=== PATIENT | female | born 1990 | race Caucasian/White ===

== ENCOUNTER 2017-10-08 22:30 | Emergency (ER) | payer OTHER ==
[~2017-10-08] VITALS: Ht 165.1 cm; Wt 59.4 kg
[2017-10-08 22:32] VITALS: BP 142/99
[2017-10-08] MEDS ORDERED: LIDOCAINE 1%-EPI 1:100,000 20 ML VIAL ONE (22:51)
[2017-10-08] MEDS ORDERED: ACETAMINOPHEN ES 500 MG TABLET ONE (23:03)
[2017-10-08] MEDS: ACETAMINOPHEN ES 500 MG TABLET PO ONE (23:06)
[2017-10-08] MEDS: LIDOCAINE 1%-EPI 1:100,000 20 ML VIAL TP ONE (23:27)
== END 2017-10-09 00:15 | disposition home or self-care (01) ==
LOC: ER 22:34
DX: S01.111A Laceration without foreign body of right eyelid and periocular area, initial encounter (principal); W18.09XA Striking against other object with subsequent fall, initial encounter; Y93.01 Activity, walking, marching and hiking; Y92.89 Other specified places as the place of occurrence of the external cause; Y99.8 Other external cause status
CPT/HCPCS: A4606; A6403; J3490; Z7610

== ENCOUNTER 2017-11-02 22:01 | Emergency (ER) | payer OTHER ==
--- NOTE | 2017-11-02 22:11 | NUR ---
CALLED PT IN [place], NO RESPONSE
--- NOTE | 2017-11-02 22:26 | NUR ---
CALLED PT IN [place], NO RESPONSE
== END 2017-11-02 22:27 | disposition left against medical advice (07) ==
LOC: ER 22:03
DX: Z53.21 Procedure and treatment not carried out due to patient leaving prior to being seen by health care provider (principal); R53.1 Weakness

== ENCOUNTER 2017-11-24 22:46 | Emergency (ER) | payer OTHER ==
[~2017-11-24] VITALS: Ht 165.1 cm; Wt 63.5 kg
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
[2017-11-24] MEDS ORDERED: ACETAMINOPHEN 325 MG TABLET PO ONE (23:30)
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
[2017-11-24] MEDS ORDERED: ACETAMINOPHEN ES 500 MG TABLET ONE (23:34)
--- NOTE | 2017-11-24 23:40 | NUR ---
PT AMBULATORY W/ STEADY GAIT TO RESTROOM. URINE OBTAINED & SENT.
--- NOTE | 2017-11-25 00:23 | NUR ---
PT SENT TO CT.
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
[2017-11-25 02:20] VITALS: BP 133/69
--- NOTE | 2017-11-25 02:33 | NUR ---
pt medically cleared by ROJELIO Fox of hard c-collar precautions. ROJELIO Fox at bedside for update on pt status.
--- NOTE | 2017-11-25 02:44 | NUR ---
Patient ambulatory w/ steady gait, resp even & unlabored, nad noted. Patient discharged to home in stable condition. Written and verbal after care instructions given. Patient verbalizes understanding of instruction.
== END 2017-11-25 02:53 | disposition home or self-care (01) ==
LOC: ER 22:49
DX: S02.2XXA Fracture of nasal bones, initial encounter for closed fracture (principal); S01.01XA Laceration without foreign body of scalp, initial encounter; Y04.8XXA Assault by other bodily force, initial encounter; Y93.89 Activity, other specified; Y92.89 Other specified places as the place of occurrence of the external cause; Y99.8 Other external cause status
CPT/HCPCS: 70450-TC; 70486-TC; 72125-TC; 84703-TC; A4606; A6402; Z7610

== ENCOUNTER 2018-01-03 10:09 | Emergency (ER) | payer SELFPAY ==
[~2018-01-03] VITALS: Ht 162.6 cm; Wt 59.2 kg
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
--- NOTE | 2018-01-03 10:20 | NUR ---
NEW IV STARTED ON RIGHT HAND, 20G. BLOOD DRAWN AND SENT TO LAB.
[2018-01-03 10:28] LABS: BASOPHILS # (AUTO) 0.1 /CMM (0.0-0.2); BASOPHILS % (AUTO) 0.6 % (0.0-2.0); EOSINOPHILS % (AUTO) 0.6 % (0.0-6.0); HEMATOCRIT 38 % (33-45); HEMOGLOBIN 13.3 g/dL (11.5-14.8); LYMPHOCYTES # (AUTO) 0.8 /CMM (0.8-4.8); LYMPHOCYTES % (AUTO) 3.8 % (20.0-44.0); MEAN CORPUSCULAR HEMOGLOBIN 33 PG (26.0-33.0); MEAN CORPUSCULAR HGB CONC 35 g/dl (31.0-36.0); MEAN CORPUSCULAR VOLUME 93 fL (82-100); MONOCYTES # (AUTO) 2.3 /CMM (0.1-1.30); NEUTROPHILS # (AUTO) 17.4 /CMM (1.8-8.9); PLATELET COUNT (AUTO) 251 /CMM (150-450); RDW COEFFICIENT OF VARIATION 11.8 (11.5-15.0); RED BLOOD CELL COUNT(AUTO) 4.05 MIL/uL (4.0-5.2); WHITE BLOOD COUNT (AUTO) 20.7 K/uL (4.3-11.0)
[2018-01-03] MEDS ORDERED: LIDOCAINE 1%-EPI 1:100,000 20 ML VIAL ONE ×2 (10:28→11:42)
[2018-01-03] MEDS ORDERED: LIDOCAINE 1%-EPI 1:100,000 50 ML VIAL IJ ONE (10:30)
[2018-01-03] MEDS ORDERED: IV NS 0.9% 1,000 ML IV ONE (10:30)
--- NOTE | 2018-01-03 10:30 | NUR ---
[employer] AT BEDSIDE
[2018-01-03 10:42] LABS: CALCIUM, SERUM 8.5 mg/dL (8.5-10.1); POTASSIUM 3.5 mmol/L (3.5-5.1)
--- NOTE | 2018-01-03 10:48 | NUR ---
PATIENT TAKEN TO CT VIA STRETCHER.
--- NOTE | 2018-01-03 11:00 | NUR ---
PATIENT RETURNED FROM CT
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
[2018-01-03] MEDS ORDERED: LIDOCAINE 2% 20 ML MDV ONE (11:42)
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
--- NOTE | 2018-01-03 12:35 | NUR ---
IV removed. Catheter intact and site benign. Pressure and 4x4 applied to site. No bleeding noted. Patient discharged to to [facility] with [employer] in stable condition. Written and verbal after care instructions given. Patient verbalizes understanding of instruction.
[2018-01-03 12:37] VITALS: BP 134/92
== END 2018-01-03 12:35 | disposition home or self-care (01) ==
LOC: ER 10:10
DX: S01.81XA Laceration without foreign body of other part of head, initial encounter (principal); S71.112A Laceration without foreign body, left thigh, initial encounter; S09.8XXA Other specified injuries of head, initial encounter; Z88.5 Allergy status to narcotic agent; Y04.8XXA Assault by other bodily force, initial encounter; Y93.89 Activity, other specified; Y92.89 Other specified places as the place of occurrence of the external cause; Y99.8 Other external cause status
CPT/HCPCS: 36415; 70450-TC; 70486-TC; 80048-TC; 84703-TC; 85025-TC; A4606; J3490; J7030; Z7610